=== PATIENT | female | born 1970 | race Caucasian/White ===

== ENCOUNTER 2016-06-01 16:29 | Emergency (ER) | payer MEDICAID ==
[~2016-06-01] VITALS: Ht 162.6 cm; Wt 76.7 kg
[~2016-06-01 16:29] MED LIST: LISINOPRIL20 MG PO; LISINOPRIL5 MG; METFORMIN HCL850 MG PO; MICRONASE5 MG PO; SYNTHROID0.125 MG PO
[2016-06-01 18:41] LABS: BASOPHIL % 0.3 % (0-2); PLATELET COUNT 208 x10^3mcL (130-400); RED CELL DISTRIBUTION WIDTH 13.4 % (11.5-14.5)
[2016-06-01 18:45] LABS: CALCIUM 9.5 mg/dL (8.5-10.1); CARBON DIOXIDE 26.1 mmol/L (21-32); CHLORIDE SERUM 100 mmol/L (98-107); CREATININE SERUM 0.6 mg/dL (0.6-1.0); GFR1 > 60 mL/min; GLUCOSE SERUM 247 mg/dL (74-106); POTASSIUM SERUM 3.3 mmol/L (3.5-5.1); SODIUM SERUM 136 mmol/L (136-145)
[2016-06-01 18:49] LABS: ALBUMIN 4.1 g/dL (3.4-5.0); ALKALINE PHOSPHATASE 101 U/L (46-116); ALT/SGPT 93 U/L (14-59); AMYLASE 57 U/L (25-115); AST/SGOT 56 U/L (15-37); BILIRUBIN TOTAL 0.6 mg/dL (0.20-1.00); LIPASE 152 IU/L (73-393); TOTAL PROTEIN, SERUM 7.8 g/dL (6.4-8.2)
[2016-06-01 20:54] VITALS: BP 125/74
== END 2016-06-01 20:54 | disposition home or self-care (01) ==
LOC: ED 16:29
PROVIDERS: Emergency Medicine
DX: N83.201 Unspecified ovarian cyst, right side (principal); I10 Essential (primary) hypertension; E11.9 Type 2 diabetes mellitus without complications; Z79.899 Other long term (current) drug therapy
CPT/HCPCS: 83880; J1170; J2405

== ENCOUNTER 2017-03-24 20:44 | Emergency (ER) | payer MEDICAID ==
[~2017-03-24] VITALS: Ht 162.6 cm; Wt 76.7 kg
[2017-03-24 21:06] VITALS: Ht 162.6 cm; Wt 76.7 kg
[2017-03-25 02:00] VITALS: BP 130/80
== END 2017-03-25 02:00 | disposition home or self-care (01) ==
LOC: ED 20:44
DX: J20.9 Acute bronchitis, unspecified (principal); I10 Essential (primary) hypertension; E11.9 Type 2 diabetes mellitus without complications; Z88.6 Allergy status to analgesic agent

== ENCOUNTER 2017-12-27 17:46 | Inpatient (IN) | payer MEDICAID ==
[~2017-12-27] VITALS: Ht 162.6 cm; Wt 71.7 kg
[2017-12-27 17:53] VITALS: Ht 162.6 cm; Wt 71.7 kg
[2017-12-27 19:06] LABS: BASOPHIL % 0.3 % (0-2); PLATELET COUNT 246 x10^3mcL (130-400); RED CELL DISTRIBUTION WIDTH 13.1 % (11.5-14.5)
[2017-12-27 19:10] LABS: UA SPECIFIC GRAVITY <=1.005 (1.005-1.035); microscopic required? YES; urine erythrocyte 2+ (NEGATIVE)
[2017-12-27 19:47] LABS: CALCIUM 10.8 mg/dL (8.5-10.1); CARBON DIOXIDE 25.2 mmol/L (21-32); CHLORIDE SERUM 98 mmol/L (98-107); CREATININE SERUM 0.5 mg/dL (0.6-1.0); GFR1 > 60 mL/min; GLUCOSE SERUM 136 mg/dL (74-106); SODIUM SERUM 134 mmol/L (136-145)
[2017-12-27 19:54] LABS: ALBUMIN 3.6 g/dL (3.4-5.0); ALKALINE PHOSPHATASE 106 U/L (46-116); ALT/SGPT 18 U/L (14-59); AST/SGOT 22 U/L (15-37); BILIRUBIN TOTAL 0.7 mg/dL (0.20-1.00)
[2017-12-27 19:55] LABS: TOTAL PROTEIN, SERUM 8.6 g/dL (6.4-8.2)
[2017-12-27] MEDS ORDERED: METFORMIN850 M1 PO (20:04)
[2017-12-27] MEDS ORDERED: LEVOTHYROXINE0.05 M2 PO (20:04)
[2017-12-27] MEDS ORDERED: VICTOZA6 MG/M1 SC (20:05)
[2017-12-27 20:44] LABS: CHOLESTEROL/HDL RATIO 4.6; MAGNESIUM 1.4 mg/dL (1.8-2.4)
[2017-12-27 21:20] LABS: AMPHETAMINE QUAL UR NONE DETECTED (See below)
[2017-12-27 21:42] VITALS: BP 127/77
[2017-12-28 06:03] LABS: BASOPHIL % 0.4 % (0-2); PLATELET COUNT 216 x10^3mcL (130-400); RED CELL DISTRIBUTION WIDTH 13.3 % (11.5-14.5)
[2017-12-28 06:06] VITALS: BP 107/68
[2017-12-28 06:31] LABS: CALCIUM 9.5 mg/dL (8.5-10.1); CARBON DIOXIDE 25.3 mmol/L (21-32); CHLORIDE SERUM 106 mmol/L (98-107); CREATININE SERUM 0.5 mg/dL (0.6-1.0); GFR1 > 60 mL/min; GLUCOSE SERUM 136 mg/dL (74-106); PHOSPHOROUS 2.7 mg/dL (2.5-4.9); POTASSIUM SERUM 3.9 mmol/L (3.5-5.1); SODIUM SERUM 140 mmol/L (136-145)
[2017-12-28 08:58] VITALS: BP 107/71
[2017-12-28 12:52] VITALS: BP 115/73
[2017-12-28 17:00] VITALS: BP 108/70
[2017-12-28 20:52] VITALS: BP 107/67
[2017-12-29 05:49] VITALS: BP 111/68
[2017-12-29 05:58] LABS: BASOPHIL % 0.7 % (0-2); PLATELET COUNT 224 x10^3mcL (130-400); RED CELL DISTRIBUTION WIDTH 12.9 % (11.5-14.5)
[2017-12-29 06:36] LABS: CALCIUM 9.6 mg/dL (8.5-10.1); CARBON DIOXIDE 26.9 mmol/L (21-32); CHLORIDE SERUM 105 mmol/L (98-107); CREATININE SERUM 0.4 mg/dL (0.6-1.0); GFR1 > 60 mL/min; GLUCOSE SERUM 148 mg/dL (74-106); POTASSIUM SERUM 4.1 mmol/L (3.5-5.1); SODIUM SERUM 140 mmol/L (136-145)
[2017-12-29 08:16] VITALS: BP 105/71
[2017-12-29 12:10] VITALS: BP 117/79
[2017-12-29 16:29] VITALS: BP 102/73
[2017-12-29 20:43] VITALS: BP 123/86
[2017-12-30 05:24] VITALS: BP 105/64
[2017-12-30 06:33] LABS: CALCIUM 10.3 mg/dL (8.5-10.1); CARBON DIOXIDE 28.2 mmol/L (21-32); CHLORIDE SERUM 104 mmol/L (98-107); CREATININE SERUM 0.5 mg/dL (0.6-1.0); GFR1 > 60 mL/min; GLUCOSE SERUM 159 mg/dL (74-106); POTASSIUM SERUM 4.2 mmol/L (3.5-5.1); SODIUM SERUM 139 mmol/L (136-145)
[2017-12-30 06:38] LABS: BASOPHIL % 0.5 % (0-2); PLATELET COUNT 267 x10^3mcL (130-400); RED CELL DISTRIBUTION WIDTH 13.2 % (11.5-14.5)
[2017-12-30 08:33] VITALS: BP 106/66
[2017-12-30 09:03] VITALS: BP 106/66
[2017-12-30] MEDS ORDERED: LEVAQUIN750 MG PO (10:06)
[2017-12-30] MEDS ORDERED: FLA500 PO (10:06)
== END 2017-12-30 11:36 | disposition home or self-care (01) | DRG 720 ==
LOC: ED 17:46 → DU 19:54 → MU 19:54 → DU 21:15
PROVIDERS: Emergency Medicine; Internal Medicine
DX: A41.9 Sepsis, unspecified organism (principal); E83.42 Hypomagnesemia; K52.9 Noninfective gastroenteritis and colitis, unspecified; N39.0 Urinary tract infection, site not specified; E11.9 Type 2 diabetes mellitus without complications; E78.5 Hyperlipidemia, unspecified; Z68.26 Body mass index [BMI] 26.0-26.9, adult; Z90.710 Acquired absence of both cervix and uterus; Z79.84 Long term (current) use of oral hypoglycemic drugs
CPT/HCPCS: 82962; 83880; 87804; 90658; J1956; J3475; J3490; J7030; Q0092

== ENCOUNTER 2018-06-14 20:19 | Emergency (ER) | payer MEDICAID ==
[~2018-06-14] VITALS: Ht 162.6 cm; Wt 68.5 kg
[~2018-06-14 20:19] MED LIST changes: +FLA500 PO; +LEVAQUIN750 MG PO; +LEVOTHYROXINE0.05 M2 PO; +METFORMIN850 M1 PO; +VICTOZA6 MG/M1 SC
[2018-06-14 20:47] VITALS: Ht 162.6 cm; Wt 68.5 kg
[2018-06-14 21:25] VITALS: BP 137/89
== END 2018-06-14 21:25 | disposition home or self-care (01) ==
LOC: ED 20:19
DX: J00 Acute nasopharyngitis [common cold] (principal); J30.9 Allergic rhinitis, unspecified; R51 Headache; I10 Essential (primary) hypertension; E11.9 Type 2 diabetes mellitus without complications; Z88.6 Allergy status to analgesic agent

== ENCOUNTER 2018-12-19 01:55 | Emergency (ER) | payer MEDICAID ==
[~2018-12-19] VITALS: Ht 162.6 cm; Wt 67.1 kg
[2018-12-19 02:05] VITALS: Ht 162.6 cm; Wt 67.1 kg
[2018-12-19 05:41] VITALS: BP 107/73
== END 2018-12-19 05:41 | disposition home or self-care (01) ==
LOC: ED 01:55
DX: R60.0 Localized edema (principal); I10 Essential (primary) hypertension; E11.9 Type 2 diabetes mellitus without complications; E05.90 Thyrotoxicosis, unspecified without thyrotoxic crisis or storm; Z88.6 Allergy status to analgesic agent
CPT/HCPCS: Q0092

== ENCOUNTER 2019-09-10 17:53 | Emergency (ER) | payer MEDICAID ==
[~2019-09-10] VITALS: Ht 162.6 cm; Wt 60.3 kg
[2019-09-10 18:00] VITALS: BP 137/82; Ht 162.6 cm; Wt 60.3 kg
== END 2019-09-10 19:21 | disposition home or self-care (01) ==
LOC: ED 17:53
DX: S43.401A Unspecified sprain of right shoulder joint, initial encounter (principal); I10 Essential (primary) hypertension; E11.9 Type 2 diabetes mellitus without complications; E05.90 Thyrotoxicosis, unspecified without thyrotoxic crisis or storm; Z88.6 Allergy status to analgesic agent; W18.39XA Other fall on same level, initial encounter; Y93.89 Activity, other specified; Y92.89 Other specified places as the place of occurrence of the external cause; Y99.8 Other external cause status